=== PATIENT | female | born 1970 | race Caucasian/White ===

== ENCOUNTER 2017-10-02 15:30 | Emergency (ER) | payer OTHER ==
[~2017-10-02] VITALS: Ht 162.6 cm; Wt 63.5 kg
[2017-10-02 16:00] VITALS: BP 138/84
--- NOTE | 2017-10-02 16:21 | ER.PDOC ---
General Chief Complaint: Skin Rash/Abscess Stated Complaint: POSSIBLE SHINGLES Time seen by MD: 16:12 Source: patient Exam Limitations: no limitations History of Present Illness Initial Comments Skin rash since this morning Severity: mild Location: trunk Identified Cause: no Allergies: Coded Allergies: No Known Allergies (Unverified , 10/02/17) Past Medical History Medical History: thyroid disease Surgical History: appendectomy, cholecystectomy, , hysterectomy LMP (females 10-50): hysterectomy Social History Smoking: less than 1 pack/day Alcohol Use: rarely Drug Use: none Constitutional: no symptoms reported EENTM: no symptoms reported Respiratory: no symptoms reported Cardiovascular: no symptoms reported Gastrointestinal: no symptoms reported Skin: see HPI All Other Systems: Reviewed and Negative Physical Exam General Appearance: alert, no distress Skin: warm/dry, nml color, skin rash Location: abdomen Character: urticarial Extremities: non-tender, nml ROM, no edema EENT: eyes nml inspection, lips/gums nml, pharynx nml Neck: trachea midline, no swelling Respiratory: no resp. distress, breath sounds nml CVS: reg. rate & rhythm, heart sounds nml Abdomen: non-tender, no organomegaly NEURO/PSYCH: oriented x 3, CN's nml as tested, motor nml, sensation nml, mood/ affect nml Departure Time of Disposition: 16:15 Disposition: 01 HOME, SELF-CARE Impression: Primary Impression: Urticaria Condition: Stable Referrals: PCP,UNKNOWN (PCP) PRIMARY CARE PROVIDER Additional Instructions: Benadryl Pepcid Prednisone F/U with your PCP in 3-4 days Duration or Time Spent with Pa: Candy loving MBA,JOHN Peters MD Oct 02, 2017 16:21
[2017-10-02 17:03] VITALS: BP 138/84
== END 2017-10-02 16:45 | disposition home or self-care (01) ==
LOC: ER 15:30
DX: L50.9 Urticaria, unspecified (principal); E07.9 Disorder of thyroid, unspecified; F17.210 Nicotine dependence, cigarettes, uncomplicated; Z90.49 Acquired absence of other specified parts of digestive tract; Z90.710 Acquired absence of both cervix and uterus
CPT/HCPCS: 99283